=== PATIENT | male | born 1980 | race African-American/Black ===

== ENCOUNTER 2018-03-16 19:13 | Emergency (ER) | payer SELFPAY ==
[~2018-03-16 19:13] MED LIST: DOXY100T PO
[2018-03-16 19:39] VITALS: BP 133/69; PULSE 71; RESP 14; TEMP 98.4; O2SAT 100
--- NOTE | 2018-03-16 20:06 | PD ---
HPI Chief Complaint: Cold / Flu Symptoms Time Seen by Provider: 20:02 Travel History International Travel<30 days: No Contact w/Intl Traveler<30days: No Traveled to known affect area: No History of Present Illness HPI 38-year-old male presents emergency department for evaluation of cough that is been present for 1-1/2 months, and congestion that started 3-4 days ago. Says his cough has been productive with clear sputum. He denies fevers, chills, shortness of breath. Says he developed some chest discomfort with coughing yesterday so he decided to come in today for evaluation. He has been using over -the-counter medications such as allergy medication without significant improvement. He does not have a primary care physician and has not been evaluated for this cough previously. He denies chronic medical issues or medication use. PFSH Past Medical History Medical History: Denies Significant Hx Immunizations Current: Yes Tetanus Vaccination: Never Vaccinated Influenza Vaccination: No Past Surgical History Surgical History: No Previous Surgery Social History Alcohol Use: Yes (OCC) Tobacco Use: No Substance Use: No Allergies-Medications (Allergen,Severity, Reaction): Coded Allergies: iodine (Verified Allergy, Severe, Itching, 03/16/18) morphine (Unverified Allergy, Intermediate, RASH/HIVES/ITCHING, 03/16/18) Reported Meds & Prescriptions Reported Meds & Active Scripts Active Ventolin Hfa 18 GM Inh (Albuterol Sulfate) 90 Mcg/Act Aer 2 Puff INH Q4-6H PRN Medrol Dosepak (Methylprednisolone) 4 Mg Dspk 4 Mg PO DIRECTED Per Pharmacist direction Review of Systems Except as stated in HPI: all other systems reviewed are Neg Physical Exam Narrative GENERAL: Well-nourished, well-developed patient, in NAD. Patient has a nasal tone to his voice SKIN: Focused skin assessment warm/dry. No rashes or lesions. HEAD: Normocephalic. Atraumatic. EYES: No scleral icterus. No injection or drainage. PERRLA, EOMI Tympanic membranes pearly pierre without bulging or erythema THROAT: No pharyngeal injection, exudates, or tonsillar hypertrophy. Airway is patent. NECK: Supple, trachea midline. No JVD or lymphadenopathy. No meningismus. CARDIOVASCULAR: Regular rate and rhythm without murmurs, gallops, or rubs. RESPIRATORY: Breath sounds equal bilaterally. No accessory muscle use. No wheezes, rales, or rhonchi MUSCULOSKELETAL: No cyanosis, or edema. BACK: Nontender without obvious deformity. No CVA tenderness. Data Data Last Documented VS Vital Signs Date Time Temp Pulse Resp B/P (MAP) Pulse Ox O2 Delivery O2 Flow Rate FiO2 03/16/18 19:39 98.4 71 14 133/69 (90) 100 MDM Medical Decision Making Medical Screen Exam Complete: Yes Emergency Medical Condition: Yes Differential Diagnosis influenza, URI, pneumonia, bronchitis, pneumonitis, bronchospasm Narrative Course 38-year-old male presents emergency department for evaluation of cough that is been present for 1-1/2 months, and congestion that started 3-4 days ago. Says his cough has been productive with clear sputum. He denies fevers, chills, shortness of breath. Says he developed some chest discomfort with coughing yesterday so he decided to come in today for evaluation. He has been using over -the-counter medications such as allergy medication without significant improvement. He does not have a primary care physician and has not been evaluated for this cough previously. He denies chronic medical issues or medication use. Vital signs are stable. Physical exam findings essentially unremarkable. There is some scant erythema in his posterior pharynx without tonsillar hypertrophy or exudates. Lungs clear to auscultation bilaterally without wheezes, rales, rhonchi. Patient discharged with Medrol Dosepak and albuterol inhaler. It is possible the patient also has gastric reflux contributing to his symptoms though he denies any medical issues or medication use on a regular basis. I strongly advised to follow-up with a primary care physician for further evaluation. Return for worsening or persistent symptoms. Diagnosis Primary Impression: Bronchitis Referrals: [facility] Additional Instructions: You may use a drop of honey and lemon in a cup of warm water to soothe your cough. (If you are greater than 1 year old ) Ensure good hydration and a nutritious diet. Note that viral infection symptoms may last for several weeks if you have a viral illness. Follow up with your primary physician within 2-3 days. Return to the ED for worsening or persistent symptoms. If your symptoms do not improve, consider for gastric reflux such as omeprazole or ranitidine as gastric reflux may cause coughing as well. Scripts Albuterol 18 GM Inh (Ventolin Hfa 18 GM Inh) 90 Mcg/Act Aer 2 PUFF INH Q4-6H Y for SHORTNESS OF BREATH, #1 INHALER 0 Refills Prov: Mackenzie Flanagan DO 03/16/18 Methylprednisolone Dosepak (Medrol Dosepak) 4 Mg Dspk 4 MG PO DIRECTED, #1 DSPK 0 Refills Per Pharmacist direction Prov: Mackenzie Flanagan DO 03/16/18 Disposition: 01 DISCHARGE HOME Condition: Stable Janae Hooper Mar 16, 2018 20:06
[2018-03-16] MEDS ORDERED: VENTAER INH (20:07)
[2018-03-16] MEDS ORDERED: MEDR4PAK PO (20:07)
== END 2018-03-16 20:30 | disposition home or self-care (01) ==
LOC: NEPK 19:13
DX: J40 Bronchitis, not specified as acute or chronic (principal); R07.89 Other chest pain
CPT/HCPCS: 99283